=== PATIENT | female | born 1955 | race Caucasian/White ===

== ENCOUNTER 2017-01-07 13:37 | Outpatient (CLI) | payer OTHER | END 2017-01-07 13:38 | disposition home or self-care (01) | DX: Z12.31 Encounter for screening mammogram for malignant neoplasm of breast (principal); Z80.3 Family history of malignant neoplasm of breast ==

== ENCOUNTER 2018-03-31 11:26 | Outpatient (CLI) | payer OTHER ==
--- NOTE | 2018-04-01 16:45 | Mammography Report ---
Procedure Date: 03/31/2018 Accession Number: [id number] / [id number] Procedure: MGN - Screening Mammo Dig Bilat CPT Code: FULL RESULT: EXAM: Screening Mammo Dig Bilat DATE: 03/31/2018 11:46 AM CLINICAL HISTORY: 62-year-old female with a family history of breast cancer. TECHNIQUE: Bilateral CC and MLO views were obtained. COMPARISON: 01/07/2017, 01/19/2014, 11/16/2011, 05/08/2010. FINDINGS: The breasts demonstrate heterogeneously dense fibroglandular parenchyma bilaterally. There are scattered bilateral benign-appearing calcifications. No suspicious masses, clustered microcalcifications, or regions of architectural distortion are identified. IMPRESSION: Benign findings RECOMMENDATION: Routine annual screening unless otherwise clinically indicated. BIRADS CATEGORY 2: Benign findings STANDARD QUALIFYING STATEMENTS: 1. This examination was reviewed with the aid of Computer-Aided Detection (CAD). 2. A negative or benign imaging report should not delay biopsy if clinically suspicious findings are present. Consider surgical consultation if warrented. More than 5% of cancers are not identified by imaging. 3. Dense breasts may obscure an underlying neoplasm.
== END 2018-03-31 11:27 | disposition home or self-care (01) ==
LOC: DI.N 11:26
PROVIDERS: ATTEND Family Medicine
DX: Z12.31 Encounter for screening mammogram for malignant neoplasm of breast (principal); Z80.3 Family history of malignant neoplasm of breast
CPT/HCPCS: 77067

== ENCOUNTER 2019-12-09 11:06 | Outpatient (CLI) | payer MEDICAID | END 2019-12-09 11:07 | disposition EMS.NT | LOC: EMS 11:06 | PROVIDERS: ATTEND Surgery | DX: M25.512 Pain in left shoulder (principal) ==

== ENCOUNTER 2019-12-09 15:30 | Emergency (ER) | payer MEDICAID ==
[2019-12-09] MEDS ORDERED: SODIUM CHLORIDE 0.9% 1,000 ML IV ONE (15:55)
[2019-12-09] MEDS ORDERED: KETOROLAC 30 MG/ML VIAL IVP STA (15:55)
--- NOTE | 2019-12-09 15:57 | ED Physician Documentation ---
History of Present Illness - Stated complaint Stated Complaint: LT SHOULDER PX - Chief complaint Chief Complaint: Ext Problem - History obtained from History obtained from: Patient - History of Present Illness Timing: Other (Without specific injury 6 days ago she developed severe hard to localize left shoulder pain. She has a history of a labral tear in that shoulder which was repaired about 10 years ago. She really has not had any problems with until then. She does feel better with her arm over her head, otherwise movement is not too painful. This is her third ED visit for same. She says she had a x-ray that was basically negative for it. Toradol has been helpful in the 2 ED visits but has been taking [place] at home which has not been helpful. In fact she took for over a short period of time today which subsequently made her nauseous and she threw up several times which is better now. The [place] was not very helpful to. She denies chest pain or shortness of breath. The pain does radiate into her neck.) Review of Systems Ten Systems: 10 systems reviewed and negative Constitutional: denies: Fever, Chills Cardiac: denies: Chest pain / pressure, Palpitations Respiratory: denies: Dyspnea, Cough PD PAST MEDICAL HISTORY - Past Surgical History Past Surgical History: No - Present Medications Home Medications: Ambulatory Orders Medication Instructions Recorded Confirmed Estrogen/Progest 12/09/19 Gabapentin [Neurontin] 300 mg PO TID #60 capsule 12/09/19 HYDROcod/ACETAM 5/325 [[place] 5/325] 1 each PO 12/09/19 Ibuprofen [Advil] 100 mg PO 12/09/19 Ketorolac [Toradol] 10 mg PO Q6H 12/09/19 12/09/19 Sertraline [Zoloft] 25 mg PO DAILY 12/09/19 12/09/19 predniSONE [Deltasone] 20 mg PO [id number] #21 tab 12/09/19 - Allergies Allergies/Adverse Reactions: Allergies Allergy/AdvReac Type Severity Reaction Status Date / Time ondansetron [From Zofran] AdvReac Emesis Verified 12/09/19 15:37 - Social History Does the pt smoke?: No Smoking Status: Never smoker Does the pt drink ETOH?: No Does the pt have substance abuse?: No - Immunizations Immunizations are current?: No Immunizations: TDAP >10years/unknown PD ED PE NORMAL - Vitals Vital signs reviewed: Yes - General General: Alert and oriented X 3, Other (She appears uncomfortable and restless, she is mostly holding the left arm over her head.) - HEENT HEENT: PERRL, EOMI - Neck Neck: Supple, no meningeal sign, No bony TTP - Cardiac Cardiac: Other (Cardiac but regular without murmur) - Respiratory Respiratory: No respiratory distress, Clear bilaterally - Abdomen Abdomen: Non tender - Back Back: No CVA TTP, No spinal TTP - Derm Derm: Normal color, Warm and dry - Extremities Extremities: Other (Minor tenderness that is hard to localize around the left shoulder joint. Passive internal and external rotation is without significant pain. She moves it up and down without pain. Supraspinatus testing is negative.) - Neuro Neuro: Alert and oriented X 3, Normal speech Results - Vitals Vitals: Vital Signs - 24 hr 12/09/19 12/09/19 12/09/19 15:33 16:57 17:48 Temperature 36.8 C Heart Rate 125 H 92 96 Respiratory 18 14 18 Rate Blood Pressure 127/77 121/65 139/75 H O2 Saturation 99 100 100 Oxygen O2 Source Room air - EKG (time done) 1558 Rate: Rate (enter#) (111) Rhythm: Sinus tachycardia Bandana: Normal Intervals: Normal CO QRS: Normal Ischemia: Non specific changes (Very mild inferior and lateral ST depression with flat T waves throughout). No: ST elevation c/w ischemia Compare to prior EKG: Old EKG unavailable Computer interpretation: Agree with computer - Labs Labs: Laboratory Tests 12/09/19 12/09/19 12/09/19 16:05 16:05 16:05 WBC 8.3 RBC 4.58 Hgb 13.2 Hct 40.8 MCV 89.1 MCH 28.8 MCHC 32.4 RDW 13.1 Plt Count 208 MPV 9.9 Neut # (Auto) 6.5 Lymph # (Auto) 1.3 L [place] # (Auto) 0.5 Eos # (Auto) 0.0 Baso # (Auto) 0.0 Absolute Nucleated RBC 0.00 Nucleated RBC % 0.0 Sodium 137 Potassium 3.9 Chloride 103 Carbon Dioxide 25 Anion Gap 9.0 BUN 23 H Creatinine 0.5 Estimated GFR (MDRD) 124 Glucose 112 H Calcium 9.0 Total Bilirubin 0.6 AST 21 ALT 20 Alkaline Phosphatase 61 Troponin I High Sens 2.5 Total Protein 7.3 Albumin 4.7 Globulin 2.6 Albumin/Globulin Ratio 1.8 Lipase 23 - Rads (name of study) CT CSpine Radiology: EMP read contemporaneously (Mild to space narrowing at C5-C6 and C7- T1 with left facet arthropathy at C6-C7 With left foraminal narrowing.) CTA Chest Radiology: EMP read contemporaneously (Some small pulmonary nodules needing follow-up, otherwise negative) PD MEDICAL DECISION MAKING - ED course ED course: 64-year-old woman presents with severe left shoulder pain, did not seem like her shoulder joint based on examination because she had excellent range of motion that did not reproduce her pain. No evidence of rotator cuff issues on exam. As such given her underlying estrogen use the differential diagnosis was expanded and included ACS/NH, PE. Also cervical radiculopathy. Because of this advanced imaging of the neck and chest was done which ruled out PE. She did have neuroforaminal narrowing on the left which is probably causative. No sp ecific pathologic findings on EKG or lab work. She was feeling better after some Dilaudid and Toradol here and was also started on steroids and gabapentin. Departure - Departure Disposition: 01 Home, Self Care Clinical Impression: Sinus tachycardia, Pulmonary nodule, Cervical radiculopathy at C7 Left shoulder pain Qualifiers: Chronicity: acute Qualified Code(s): M25.512 - Pain in left shoulder Condition: Good Record reviewed to determine appropriate education?: Yes Instructions: ED Cervical Radiculopathy Prescriptions: Gabapentin [Neurontin] 300 mg PO TID #60 capsule predniSONE [Deltasone] 20 mg PO [id number] #21 tab Comments: As discussed, the work-up today demonstrates that you have probably a pinched nerve on the left side of your neck. This can be very painful and hard for your brain to localize. He also have some pulmonary nodules and you need to follow- up with your primary care physician for repeat CT scanning of the chest in 3 to 6 months. Otherwise the steroid tapering gabapentin should help along with the [place] that you already received for the pain. Return for new or worsening symptoms. Also talk with your primary care physician about physical therapy.
[2019-12-09] MEDS ORDERED: IOVERSOL 320 100 ML VIAL IVP ONE ×2 (16:02→16:56)
[2019-12-09 16:10] LABS: BASOPHILS % (AUTO) 0.2 %; EOSINOPHILS % (AUTO) 0.2 %; HGB - HEMOGLOBIN 13.2 g/dL (12.0-16.0); LYMPHOCYTES # (AUTO) 1.3 10^3/uL (1.5-3.5); LYMPHOCYTES % (AUTO) 15.9 %; MEAN CORPUSCULAR HEMOGLOBIN 28.8 pg (27.0-31.0); MEAN CORPUSCULAR HGB CONC 32.4 g/dL (32.0-36.0); MEAN CORPUSCULAR VOLUME 89.1 fL (81.0-99.0); MEAN PLATELET VOLUME 9.9 fL (7.9-10.8); MONOCYTES # (AUTO) 0.5 10^3/uL (0.0-1.0); MONOCYTES % (AUTO) 5.6 %; NEUTROPHILS # (AUTO) 6.5 10^3/uL (1.5-6.6); NEUTROPHILS % (AUTO) 77.7 %; PLT - PLATELET COUNT 208 10^3/uL (130-450); RED BLOOD COUNT 4.58 10^6/uL (4.20-5.40); RED CELL DISTRIBUTION WIDTH 13.1 % (12.0-15.0); WHITE BLOOD COUNT 8.3 x10^3/uL (4.8-10.8)
[2019-12-09 16:24] LABS: ALBUMIN 4.7 g/dL (3.2-5.5); ALBUMIN/GLOBULIN RATIO 1.8 (1.0-2.2); BILIRUBIN,TOTAL 0.6 mg/dL (0.2-1.0); CREATININE 0.5 mg/dL (0.4-1.0); TOTAL PROTEIN 7.3 g/dL (6.7-8.2)
[2019-12-09] MEDS ORDERED: GABAPENTIN 100 MG CAPSULE PO STA (16:58)
[2019-12-09] MEDS ORDERED: HYDROmorphone 1 MG/ML CARPUJECT IVP STA (17:31)
--- NOTE | 2019-12-09 17:32 | CT Report ---
Reason: L shoulder/neck pain Procedure Date: 12/09/2019 Accession Number: [id number] / [id number] Procedure: CT - CERVICAL SPINE WO CPT Code: Final Report FULL RESULT: EXAM: CT CERVICAL SPINE WITHOUT CONTRAST DATE: 12/09/2019 04:39 PM. HISTORY: Left shoulder/neck pain. COMPARISONS: None. TECHNIQUE: Thin-section axial images were acquired of the cervical spine without contrast. Post-processing: Coronal and sagittal reformats. Other: None. In accordance with CT protocol optimization, one or more of the following dose reduction techniques were utilized for this exam: automated exposure control, adjustment of mA and/or KV based on patient size, or use of iterative reconstructive technique. FINDINGS: Alignment: No scoliosis or spondylolisthesis. Bones: No fracture or bone lesion. Interspace Levels/Facets: C1-C2: Unremarkable. C2-C3: Unremarkable. C3-C4: Unremarkable. C4-C5: Unremarkable. C5-C6: Mild disk space narrowing. C6-C7: Left facet arthropathy with foraminal narrowing. C7-T1: Mild disk space narrowing. Musculature: Normal. No fatty atrophy. Other: The paravertebral and prevertebral soft tissues are unremarkable. The lung apices are clear. IMPRESSION: 1. Mild disk space narrowing at C5-C6 and C7-T1. 2. Left facet arthropathy at C6-C7 with left foraminal narrowing. RADIA
[2019-12-09] MEDS ORDERED: METOCLOPRAMIDE 10 MG/2 ML VIAL IVP STA (17:37)
[2019-12-09] MEDS ORDERED: DEXAMETHASONE 10 MG/ML VIAL IVP STA (18:05)
--- NOTE | 2019-12-09 18:05 | CT Report ---
Reason: L shoulder pain, PE protocol Procedure Date: 12/09/2019 Accession Number: [id number] / [id number] Procedure: CT - ANGIO CHEST W/WO CPT Code: Final Report FULL RESULT: EXAM: CT ANGIOGRAM CHEST EXAM DATE: 12/09/2019 04:55 PM. CLINICAL HISTORY: L shoulder pain, PE protocol. COMPARISON: None. TECHNIQUE: Routine helical imaging was performed through the chest in the pulmonary arterial phase. IV Contrast: OPTIRAY 320. Reconstructions: Coronal 3-D MIP reconstructions. Sagittal and coronal. In accordance with CT protocol optimization, one or more of the following dose reduction techniques were utilized for this exam: automated exposure control, adjustment of mA and/or KV based on patient size, or use of iterative reconstructive technique. FINDINGS: Pulmonary Arteries: Diagnostic quality: Adequate through the segmental arteries. No evidence for acute or chronic pulmonary emboli. RV/LV is within normal limits. There is no interventricular septal bowing. There is no reflux of contrast material in the IVC. Lungs/Pleura: Mild increased areas of attenuation in the lung bases, more in the lower lobes. Nonspecific and could be related to atelectasis. There are a few scattered pulmonary nodules which are small, with more ill-defined margins, largest in the right lower lobe measures up to 6 mm on image 123 of series 6. 3 mm nodule image 24 of series 6 in the posterior right lower lobe, 2 mm nodule in the superior segment of the left lower lobe image 82 of series 6 as well as a 2.7 mm nodule image 91 of series 6. 3 mm nodule in the periphery of the anterior right upper lobe image 64 of series 6. No effusions or pneumothoraces. Mediastinum: Normal. No cardiac enlargement or adenopathy. Thoracic Aorta: Unremarkable. Upper Abdomen: Unremarkable. Other: None. IMPRESSION: 1. No CT evidence of pulmonary embolism. 2. A few scattered pulmonary nodules, with slightly ill-defined margins, largest is 6 mm in the right lower lobe. These may be inflammatory, consider follow-up CT in 3-6 months to check for resolution. RADIA
[2019-12-09 18:18] VITALS: BP 113/71
== END 2019-12-09 18:19 | disposition home or self-care (01) ==
LOC: ED 15:30
DX: M54.12 Radiculopathy, cervical region (principal); R91.8 Other nonspecific abnormal finding of lung field; R00.0 Tachycardia, unspecified
CPT/HCPCS: 36415; 71275; 72125; 80053; 83690; 84484; 85025; 93005; 96361; 96374; 96375; 99284; 99285; A9270; J1170; J2765; Q9967

== ENCOUNTER 2019-12-15 20:42 | Outpatient (CLI) | payer MEDICAID | END 2019-12-15 20:43 | disposition home or self-care (01) | LOC: COV 20:42 | PROVIDERS: ATTEND Family Medicine | DX: R05 Cough (principal) ==

== ENCOUNTER 2022-04-10 17:34 | Emergency (ER) | payer MEDICAID, MEDICARE ==
[2022-04-10] MEDS ORDERED: EPINEPHrine 1 MG/ML AMP IM STA (17:55)
[2022-04-10] MEDS ORDERED: DEXAMETHASONE 10 MG/ML VIAL IVP STA (17:55)
[2022-04-10] MEDS ORDERED: diphenhydrAMINE INJ 50 MG/ML VIAL IVP STA (17:55)
--- NOTE | 2022-04-10 17:58 | ED Physician Documentation ---
History of Present Illness - Stated complaint Stated Complaint: ALLERGIC REACTION - Chief complaint Chief Complaint: Allergic Rx - History obtained from History obtained from: Patient - Additonal information Additional information: She went and do her yard and developed body wide itching including the palms and soles and some lipedema and some stomach pain in the left lower quadrant. Unclear what caused this. She did not eat anything prior to this. Review of Systems Constitutional: denies: Fever, Chills Nose: denies: Rhinorrhea / runny nose Cardiac: denies: Chest pain / pressure, Palpitations Respiratory: denies: Dyspnea, Cough PD PAST MEDICAL HISTORY - Past Surgical History Past Surgical History: No - Present Medications Home Medications: Ambulatory Orders Medication Instructions Recorded Confirmed Estrogen/Progest 12/09/19 Gabapentin [Neurontin] 300 mg PO TID #60 capsule 12/09/19 HYDROcod/ACETAM 5/325 [[place] 5/325] 1 each PO 12/09/19 Ibuprofen [Advil] 100 mg PO 12/09/19 Ketorolac [Toradol] 10 mg PO Q6H 12/09/19 12/09/19 Sertraline [Zoloft] 25 mg PO DAILY 12/09/19 12/09/19 predniSONE [Deltasone] 20 mg PO [id number] #21 tab 12/09/19 EPINEPHrine [Epinephrine] 0.3 mg IJ ONCE PRN #2 dis.[id number] 04/10/22 - Allergies Allergies/Adverse Reactions: Allergies Allergy/AdvReac Type Severity Reaction Status Date / Time ondansetron [From Zofran] AdvReac Emesis Verified 12/09/19 15:37 - Social History Does the pt smoke?: No Smoking Status: Never smoker Does the pt drink ETOH?: No Does the pt have substance abuse?: No - Immunizations Immunizations are current?: No Immunizations: TDAP >10years/unknown PD ED PE NORMAL - Vitals Vital signs reviewed: Yes - General General: Alert and oriented X 3, No acute distress - HEENT HEENT: Other (Bloodshot eyes, Very mild angioedema of the lips) - Neck Neck: Supple, no meningeal sign, No bony TTP - Cardiac Cardiac: RRR, No murmur - Respiratory Respiratory: No respiratory distress (No wheezing), Clear bilaterally - Abdomen Abdomen: Non tender - Derm Derm: Other (Diffuse erythroderma including the palms) - Extremities Extremities: No deformity, No tenderness to palpate, No edema, No calf tenderness / cord - Neuro Neuro: Alert and oriented X 3, Normal speech Results - Vitals Vitals: Vital Signs - 24 hr 04/10/22 04/10/22 17:43 18:13 Temperature 36.0 C L Heart Rate 109 H 87 Respiratory 22 18 Rate Blood Pressure 130/85 H 141/86 H O2 Saturation 95 98 Oxygen O2 Source Room air PD MEDICAL DECISION MAKING - ED course ED course: 66-year-old woman fits criteria for anaphylaxis and is attended to on arrival. Trigger is unclear. She is administered IM epinephrine as well as IV steroids and Benadryl On recheck after the administration of IM epinephrine her symptoms had resolved. Plan to observe for least 3 hours after the injection for any recurrence. Departure - Departure Clinical Impression: Anaphylaxis Condition: Good Record reviewed to determine appropriate education?: Yes Instructions: ED Allergic Reaction General Other Prescriptions: EPINEPHrine [Epinephrine] 0.3 mg IJ ONCE PRN #2 dis.syr PRN Reason: Allergy Symptoms Comments: As discussed, you were seen today for anaphylaxis. The cause of this is not clear since there was not clear food trigger. Talk with your primary care physician about a referral for allergy testing. I am prescribing to EpiPen's that she should fill tomorrow and keep with you and take at the first indication of a significant allergic reaction. Always better to give it and not needed then vice versa.
[2022-04-10 20:36] VITALS: BP 118/75
== END 2022-04-10 21:05 | disposition home or self-care (01) ==
LOC: ED 17:34
DX: T78.2XXA Anaphylactic shock, unspecified, initial encounter (principal)
CPT/HCPCS: 96372; 96374; 96375; 99282; 99283; J1200